=== PATIENT | male | born 1965 | race Caucasian/White ===

== ENCOUNTER 2016-07-03 08:36 | Observation (INO) | payer OTHER ==
[2016-07-03] VITALS (7 sets, daily range): BP systolic 129–167; BP diastolic 74–98; O2SAT 94
[~2016-07-03] VITALS: Ht 170.2 cm; Wt 166.9 kg
[~2016-07-03 08:36] MED LIST: ASPI1TAB PO; ATOR1TAB18 PO; LISI10TA4 PO; LOPE2CA PO; METF1000 PO
[2016-07-03] MEDS ORDERED: LR 1,000 ML IV SCH ×2 (08:45→15:00)
[2016-07-03] MEDS ORDERED: dexameTHASONE 4 MG/ML 1ML VIAL (J1100) IV ONE (08:45)
[2016-07-03] MEDS ORDERED: AMPICILLIN SOD/SULBACTAM SOD 3 GM in D5W MINI-BAG PLUS 100 ML IV ONE (08:45)
[2016-07-03] MEDS ORDERED: MIDAZOLAM INJ 2 MG/2 ML VIAL (J2250) As Ordered ONE (08:53)
[2016-07-03] MEDS ORDERED: PROPOFOL 200 MG/20 ML VIAL As Ordered ONE ×2 (08:53→12:41)
[2016-07-03] MEDS ORDERED: dexameTHASONE 4 MG/ML 1ML VIAL (J1100) As Ordered ONE ×2 (08:53→12:40)
[2016-07-03] MEDS ORDERED: fentaNYL 250 MCG/5 ML INJECTION (J3010) As Ordered ONE (08:53)
[2016-07-03] MEDS ORDERED: ROCURONIUM BROMIDE 50 MG/5 ML VIAL As Ordered ONE (08:53)
[2016-07-03] MEDS ORDERED: ONDANSETRON 4MG/2ML VIAL (J2405) As Ordered ONE (08:53)
[2016-07-03] MEDS ORDERED: LISINOPRIL 10 MG TAB PO SCH (09:00)
[2016-07-03] MEDS ORDERED: SUCCINYLCHOLINE 100 MG/5 ML SYRINGE (J0330) As Ordered ONE ×2 (10:04→12:41)
[2016-07-03] MEDS ORDERED: LIDOCAINE 2% W/ EPINEPHRINE 1.7 ML DENTAL INJ As Ordered ONE (11:12)
[2016-07-03] MEDS ORDERED: CHLORHEXIDINE GLUCONATE 0.12 % 15ML UDC (PERIDEX ORAL RINSE) As Ordered ONE (11:12)
[2016-07-03] MEDS ORDERED: OXYMETAZOLINE NASAL SPRAY (AFRIN) As Ordered ONE (11:49)
[2016-07-03] MEDS ORDERED: PHENYLephrine HCL 500 MCG/5 ML (100MCG/ML) SYRINGE (J2370) As Ordered ONE (12:58)
[2016-07-03] MEDS ORDERED: ePHEDrine SULFATE 25 MG/5 ML(5MG/ML) SYRINGE As Ordered ONE (13:19)
[2016-07-03] MEDS ORDERED: LIDOCAINE 2% W/ EPINEPHRINE 1.7 ML DENTAL INJ XX ONE (14:09)
[2016-07-03] MEDS ORDERED: CHLORHEXIDINE GLUCONATE 0.12 % 15ML UDC (PERIDEX ORAL RINSE) XX ONE (14:09)
[2016-07-03] MEDS ORDERED: PERCOCET 5MG/325MG TAB As Ordered ONE (14:45)
[2016-07-03] MEDS ORDERED: ONDANSETRON 4MG/2ML VIAL (J2405) IV PRN ×2 (15:00→15:45)
[2016-07-03] MEDS ORDERED: MEPERIDINE INJ 25 MG/ML VIAL (J2175) IV PRN (15:00)
[2016-07-03] MEDS ORDERED: fentaNYL 100 MCG/2 ML INJECTION (J3010) IV PRN (15:00)
[2016-07-03] MEDS ORDERED: METOCLOPRAMIDE INJ 10MG/2ML VIAL (J2765) IV PRN (15:00)
[2016-07-03] MEDS ORDERED: PERCOCET 5MG/325MG TAB PO PRN (15:00)
[2016-07-03] MEDS ORDERED: HYDROcodone/APAP LIQUID 7.5-325MG 15ML UDC (LORTAB ELIXIR) As Ordered ONE (15:06)
[2016-07-03] MEDS ORDERED: ANEXSIA, NORCO 7.5MG/325MG TABLET(HYDROCODONE/APAP) PO PRN (15:15)
[2016-07-03] MEDS ORDERED: BISACODYL 5 MG TAB PO PRN (15:45)
[2016-07-03] MEDS ORDERED: ACETAMINOPHEN TAB 650MG DOSE (2X325MG) PO PRN (15:45)
[2016-07-03] MEDS ORDERED: MORPHINE 2 MG/ML 1ML SYRINGE IV PRN (16:00)
[2016-07-03 16:37] LABS: BASO # 0.2 K/mm3 (0.0-0.2); EOS # 0.1 K/mm3 (0.0-0.50); EOS % 0.6 % (0.0-3.0); LARGE UNSTAINED CELL % 0.2 % (0.0-4.0); LYMPH # 0.7 K/mm3 (1.5-4.5); LYMPH % 3.3 % (24.0-44.0); MEAN CORPUSCULAR HEMOGLOBIN 28.7 pg (27.0-33.0); MEAN CORPUSCULAR HGB CONC 33.5 g/dl (32.0-36.5); MEAN CORPUSCULAR VOLUME 85.5 fl (80.0-96.0); MONO # 0.3 K/mm3 (0.0-0.8); MONO % 1.4 % (0.0-5.0); NEUTROPHILS # 17.5 K/mm3 (1.8-7.7); NEUTROPHILS % 93.6 % (36.0-66.0); PLATELET COUNT, AUTOMATED 269 k/mm3 (150-450); RED CELL DISTRIBUTION WIDTH 14.1 % (11.5-14.5); WHITE BLOOD COUNT 18.7 K/mm3 (4.0-10.0)
[2016-07-03] MEDS ORDERED: GLUCAGON FOR INJ 1 MG VIAL (J1610) SC PRN (16:45)
[2016-07-03] MEDS ORDERED: GLUCOSE 4 GM CHEW TABLET PO PRN (16:45)
[2016-07-03] MEDS ORDERED: DEXTROSE 50% 50 ML SYRINGE IV PRN (16:45)
[2016-07-03 17:32] LABS: ALBUMIN 3.6 GM/DL (3.2-5.2); ALBUMIN/GLOBULIN RATIO 0.82 (1.00-1.93); BILIRUBIN,TOTAL 0.5 MG/DL (0.2-1.0); CALCIUM LEVEL 8.9 MG/DL (8.5-10.1); CREATININE FOR GFR 1.55 MG/DL (0.70-1.30); MAGNESIUM LEVEL 1.7 MG/DL (1.8-2.4); POTASSIUM SERUM 4.2 MEQ/L (3.5-5.1)
[2016-07-03] MEDS: HumaLOG INSULIN (NovoLOG) PER UNIT SC SCH (17:50)
--- NOTE | 2016-07-03 19:01 | HPE ---
DATE OF ADMISSION: 07/03/2016 INPATIENT HOSPITALIST ATTENDING: Dr. Mara Alegria CONSULTANTS: Dr. Maciej Miller. CHIEF COMPLAINT: Dental extraction. Admit for observation due to multiple comorbid conditions, including sleep apnea, status post general anesthesia. HISTORY OF PRESENT ILLNESS: A 50-year-old male with morbid obesity, type 2 diabetes, hypertension, hypercholesterolemia, obstructive sleep apnea, on chronic continuous positive airway pressure (CPAP), presents for dental extraction due to severe dental caries, status post surgical extraction. Admitted for observation, status post general anesthesia due to prior history of comorbid conditions and sleep apnea. Patient currently denies any fevers, chills, weight gain, weight loss, changes in appetite, shortness of breath, chest pain, pressure, or tightness, nausea, vomiting, diarrhea, abdominal pain, upper or lower extremity weakness. Pain is well controlled on current regimen. Status post dental extraction. No other complaints. Hospitalist service was called for admission for observation postoperatively, status post dental extraction due to comorbid conditions and history of severe obstructive sleep apnea, requiring CPAP. PAST MEDICAL HISTORY: 1. Diabetes. 2. Hypertension. 3. Obstructive sleep apnea. 4. Hypercholesterolemia. 5. On chronic CPAP. HOME MEDICATIONS: - aspirin 81 daily - atorvastatin 80 mg nightly - lisinopril 10 daily - loperamide 2 mg as needed - metformin 1 gram daily PAST SURGICAL HISTORY: 1. Blood clot in the groin, removed. 2. Tail bone surgery. FAMILY HISTORY: Noncontributory. SOCIAL HISTORY: Less than three drinks per day social use of alcohol. 12-year second-hand smoking from his . REVIEW OF SYSTEMS: Per history of present illness (HPI). PHYSICAL EXAMINATION: Afebrile. Pulse 95, sinus, blood pressure 134/76, 96% on room air, 16 respiratory rate . GENERAL: Awake, alert, oriented times three. Unable to answer questions aside from secondary to status post dental extraction with pressure on the gingival area postoperatively. No jugular venous distention, which is difficult to assess. No thyromegaly. No cervical lymphadenopathy. LUNGS: Clear to auscultation. Distant breath sounds. HEART: S1, S2. Sinus rhythm. ABDOMEN: Obese, soft, nontender, nondistended. EXTREMITIES: Chronic trace edema. LABORATORY DATA: CBC, metabolic panel, liver function tests, magnesium, A1c, TSH, lipid panel area all pending. ASSESSMENT AND PLAN: This is a 50-year-old male with a history of morbid obesity, body mass index (BMI) 58, obstructive sleep apnea, on chronic CPAP, hypertension, hypercholesterolemia, type 2 diabetes, on chronic CPAP, presents for a dental extraction. Optimized by his permanent waver from [facility] and primary care physician at [facility], Dr. Bob, admitted for observation status post dental extraction due to multiple comorbid conditions and chronic sleep apnea. CURRENT ISSUES: 1. Dental extraction. Postoperative orders per Dr. Miller. Continue to hold patient's aspirin for now. Pain medications, bowel regimen per oral surgeon. 2. Hypertension. Resume home dose of lisinopril. 3. Type 2 diabetes. Sliding scale. Oral diet per oral surgeon. 4. Hyperlipidemia. Continue on atorvastatin. Check lipid profile. 5. Type 2 diabetes. Check A1c level. Sliding scale for now. Resume metformin in the morning. 6. Deep vein thrombosis (DVT) prophylaxis with compression stockings, as the patient is postoperative dental extraction, to prevent increased risk of bleeding. Patient will be assigned to Dr. Mara Alegria at 10 p.m. on 07/03/2016. He will discharge the patient in the morning if okay with Dr. Miller.
[2016-07-03] MEDS ORDERED: ATENOLOL 50 MG TAB PO ONE (19:15)
[2016-07-03] MEDS: AMPICILLIN SOD/SULBACTAM SOD 3 GM in D5W MINI-BAG PLUS 100 ML IV SCH ×2 (19:42→22:45)
[2016-07-03] MEDS: NS 1,000 ML IV SCH (19:42)
[2016-07-03] MEDS ORDERED: HumaLOG INSULIN (NovoLOG) PER UNIT SC SCH (21:00)
[2016-07-03] MEDS ORDERED: SIMVASTATIN 40 MG TAB PO SCH (21:00)
[2016-07-04 00:30] VITALS: BP 101/60
[2016-07-04] MEDS: AMPICILLIN SOD/SULBACTAM SOD 3 GM in D5W MINI-BAG PLUS 100 ML IV SCH ×2 (04:22→10:25)
[2016-07-04] MEDS: NORCO, ANEXSIA 5/325MG TABLET (HYDROcodone/ACETAMINOPHEN) PO PRN ×2 (04:26→13:08)
[2016-07-04 06:00] VITALS: BP 107/52
[2016-07-04 07:06] LABS: BASO % 0.1 % (0.0-1.0); EOS # 0.2 K/mm3 (0.0-0.50); EOS % 0.9 % (0.0-3.0); LARGE UNSTAINED CELL # 0.1 K/mm3 (0.0-0.4); LARGE UNSTAINED CELL % 0.6 % (0.0-4.0); LYMPH # 1.1 K/mm3 (1.5-4.5); LYMPH % 6.5 % (24.0-44.0); MEAN CORPUSCULAR HEMOGLOBIN 28.7 pg (27.0-33.0); MEAN CORPUSCULAR HGB CONC 33.3 g/dl (32.0-36.5); MEAN CORPUSCULAR VOLUME 86.2 fl (80.0-96.0); MONO # 0.6 K/mm3 (0.0-0.8); MONO % 3.5 % (0.0-5.0); NEUTROPHILS # 15.3 K/mm3 (1.8-7.7); NEUTROPHILS % 88.4 % (36.0-66.0); PLATELET COUNT, AUTOMATED 282 k/mm3 (150-450); RED CELL DISTRIBUTION WIDTH 13.3 % (11.5-14.5); WHITE BLOOD COUNT 17.3 K/mm3 (4.0-10.0)
[2016-07-04 07:24] LABS: ALBUMIN 3.3 GM/DL (3.2-5.2); ALBUMIN/GLOBULIN RATIO 0.8 (1.00-1.93); BILIRUBIN,TOTAL 0.5 MG/DL (0.2-1.0); CALCIUM LEVEL 8.7 MG/DL (8.5-10.1); CREATININE FOR GFR 1.63 MG/DL (0.70-1.30); GLOMERULAR FILTRATION RATE 48.1 (>60); POTASSIUM SERUM 4.9 MEQ/L (3.5-5.1); TOTAL PROTEIN 7.4 GM/DL (6.4-8.2)
[2016-07-04 08:22] VITALS: BP 107/52
[2016-07-04] MEDS: NS 1,000 ML IV SCH (08:22)
[2016-07-04] MEDS: HumaLOG INSULIN (NovoLOG) PER UNIT SC SCH ×2 (08:22→11:58)
[2016-07-04] MEDS ORDERED: ATEN50TA2 PO (08:22)
[2016-07-04] MEDS ORDERED: ATENOLOL 50 MG TAB PO SCH (09:00)
[2016-07-04 09:54] VITALS: O2SAT 95
--- NOTE | 2016-07-04 13:03 | RO ---
DATE OF PROCEDURE: 07/03/2016 PREOPERATIVE DIAGNOSES 1. Morbid obesity, diabetes, obstructive sleep apnea, coronary artery disease. 2. Carious and hopeless remaining dentition. POSTOPERATIVE DIAGNOSES: 1. Morbid obesity, diabetes, obstructive sleep apnea, coronary artery disease. 2. Carious and hopeless remaining dentition. PROCEDURE PERFORMED: Surgical extraction of all remaining teeth except tooth #32 and a maxillary labial frenectomy. SURGEON: Maciej Miller DMD, MD DIRECT OF REAL ESTATE: None. ANESTHESIA: General endotracheal anesthesia via nasal ray. SPECIMEN: None. INDICATIONS FOR SURGERY: Mr. Ramsey is a pleasant 50-year-old gentleman who was referred to me for evaluation for extraction of all of his failing dentition. PAST MEDICAL HISTORY: Contributory for morbid obesity, nightly use of C-PAP for obstructive sleep apnea, coronary artery disease. He is on numerous medications. Clinical exam reveals morbid obesity, grossly decayed and symptomatic remaining dentition of all his teeth and he also has a full bony impacted #32 wisdom tooth. Preoperative discussion with the patient made. The patient reports to me that he wants to completely "knocked out and put to sleep." I discussed with the patient that due to his past medical history and comorbidities, intravenous sedation in an office setting is not possible and is unsafe. Therefore, the decision was made to take the patient to an operating room to have this done under general anesthesia in a controlled setting. He was seen by his primary care physician and he was cleared for the procedure with no reservations. DESCRIPTION OF PROCEDURE: On the morning of 07/03/2016, the patient presented to the [facility] holding area where he was met by myself on the anesthesiologist. Any last minute questions were addressed. The history and physical and the consent were updated. At that point, the patient was then taken back to the operating room. He was laid supine on the operating room table. Ulnar nerve protectors were placed. Noninvasive cardiac monitors were applied. At that point, the patient underwent general anesthesia and was intubated with a nasal ray. The tube was then secured to the patient's forehead with a standard head wrap. At that point, the patient was then prepped and draped in the usual sterile fashion. A time-out procedure was performed to identify the patient, the procedure and any other precautions. Preoperative antibiotics were given in the form of 3 grams of Unasyn. At this point, a moist throat pack was then inserted in the patient's oropharynx, followed by the administration of 13 carpules of 2% lidocaine with 1:100,000 epinephrine, which were given as blocks and local infiltrations. At this point, surgical extractions of teeth number 2, 3, 4, 5, 6, 11, 12, 13, 14, 15, 18, 19, 20, 21, 22, 27, 28, 29, 30 and 31 were performed as follows: A full-thickness flap was reflected in each tooth area. A small amount of buccal bone was removed from the facial coronal cortex. The teeth were then luxated with ease and delivered and this was performed in that specific technique in all of the aforementioned teeth. Once the teeth were luxated and delivered, all the sockets were curetted and irrigated. No sinus exposure was noted. Inferior alveolar nerve was not noted. At this point, routine extraction of teeth number 7, 8, 9, 10, 23, 24, 25 and 26 was performed with forceps and in those areas the sockets were copiously irrigated and curetted. At this point, alveoloplasty was performed in each of the four quadrants with a football bur to make sure that the facial cortex is very smooth and accommodating for dentures in the near future. Once this was performed, copious irrigation and suction was performed. There were no bleeders that were identified. At that point, the flaps were then closed with #3-0 chromic sutures in a continuous interrupted fashion and hemostasis was easily achieved. Next, we performed the maxillary labial frenectomy where there is a high frenum pole from underneath the upper lip, for which an incision was made around the frenum circumferentially down to the muscle layer. The frenum was then removed and the wound was then closed with #3-0 chromic continuous sutures. An intraoperative decision was made not to remove tooth #32 as it is heavily impacted into the jaw bone and I made the decision to leave the tooth in its place at this time as it is asymptomatic. At this point, the oral cavity was irrigated and suctioned. Throat pack was removed and the patient was then awakened from general anesthesia and taken back to the postanesthesia care unit. COMPLICATIONS: None. ESTIMATED BLOOD LOSS: About 100 mL. DRAINS: There were no drains placed.
--- NOTE | 2016-07-05 09:12 | DSES ---
DATE OF ADMISSION: 07/03/2016 DATE OF DISCHARGE: 07/04/2016 ORAL SURGEON: Dr. Miller. FINAL DIAGNOSES: Dental extraction for dental infection. Hypertension. Type 2 diabetes. Dyslipidemia. Leukocytosis. HISTORY OF PRESENT ILLNESS: This is a 50-year-old male patient with history of morbid obesity, type 2 diabetes, hypertension, dyslipidemia, obstructive sleep apnea on CPAP, presented for dental extraction due to severe dental caries under general anesthesia. Status post surgery, the oral surgeon, Dr. Miller, has requested medicine admission for overnight observation given multiple comorbidities and obstructive sleep apnea. Patient denies any fevers, chills, weight gain, weight change, change in appetite, shortness of breath, chest pain, pressure or discomfort, nausea, vomiting, diarrhea. Patient admitted to the hospital, placed on obstructive sleep apnea (ANNEMARIE) protocol, home CPAP machine has been continued. Antibiotics given. Patient's kidney function was followed. Patient currently comfortable. Dr. Miller has evaluated the patient and is comfortable with the patient's discharge. Patient will be discharged for further followup as outpatient. VITAL SIGNS: Temperature 96.4, pulse 79, respiration 20, blood pressure 107/52, pulse ox 95% on room air. LABORATORY: WBC 17.3, hemoglobin and hematocrit 12.5/37.7, platelets 282. Chemistry: Sodium 139, potassium 4.9, chloride 106, bicarbonate 23, BUN 19, creatinine 1.6. DISCHARGE MEDICATION: - antibiotics has been called in by Dr. Miller, verified, amoxicillin has been called in. Pain medication as per Dr. Miller. Will continue: - atenolol 50 mg by mouth daily - aspirin 81 mg by mouth daily - Lipitor 80 mg by mouth daily - loperamide 2 mg by mouth as needed diarrhea - metformin 1000 mg by mouth twice daily - lisinopril has been on hold given slightly elevated kidney function DISCHARGE INSTRUCTIONS: Patient is instructed to followup with Dr. Miller as outpatient for further dental care and followup with primary care provider in 7-10 days for further followup of kidney function and management of blood pressure. Patient is instructed to return to the hospital if symptoms worsen.
== END 2016-07-04 13:10 | disposition home or self-care (01) ==
LOC: M SDC 08:36 → M MS5PR 15:36
PROVIDERS: ADMIT General Practice; ATTEND Hospitalist
DX: K02.9 Dental caries, unspecified (principal); E11.9 Type 2 diabetes mellitus without complications; I25.10 Atherosclerotic heart disease of native coronary artery without angina pectoris; I10 Essential (primary) hypertension; E78.00 Pure hypercholesterolemia, unspecified; E78.4 Other hyperlipidemia; E66.01 Morbid (severe) obesity due to excess calories; Z79.82 Long term (current) use of aspirin; Z79.899 Other long term (current) drug therapy; G47.33 Obstructive sleep apnea (adult) (pediatric)
CPT/HCPCS: 36415; 80053; 80061; 83036; 83735; 84443; 85025; 88300; 96374; 96376; 97161; D7140; D7210; D7310; D7960; D9223